=== PATIENT | female | born 1955 | race Caucasian/White ===

== ENCOUNTER 2017-07-19 19:12 | Emergency (ER) | payer OTHER ==
[~2017-07-19] VITALS: Ht 172.7 cm; Wt 82.8 kg
[~2017-07-19 19:12] MED LIST: AMOX875T20 PO; HYDR10TA16 PO; TAB-TAB PO; TEMA15; TEMA30CA PO
[2017-07-19 19:52] VITALS: BP 132/81; PULSE 73; RESP 18; TEMP 98.4; O2SAT 96
[2017-07-19] MEDS ORDERED: CEPH-460 PO (21:35)
[2017-07-19] MEDS ORDERED: TRIMSOL LEFT EYE (21:35)
--- NOTE | 2017-07-19 21:35 | PD ---
HPI Chief Complaint: Eye Problems/Injury Time Seen by Provider: 21:10 Travel History International Travel<30 days: No Contact w/Intl Traveler<30days: No Traveled to known affect area: No History of Present Illness HPI 62-year-old female here with a stye to the left upper lid 5 days. Symptoms are failing to improve with warm compresses. She denies visual disturbances. No ocular pain. Severity is moderate. No aggravating or alleviating factors. PFSH Past Medical History Cancer: Yes (RIGHT BREAST) Cardiovascular Problems: No Chemotherapy: Yes Diabetes: No Diminished Hearing: No Endocrine: No Genitourinary: No Hepatitis: No Hiatal Hernia: No Immune Disorder: No Musculoskeletal: No Neurologic: No Psychiatric: No Reproductive: No Respiratory: No Immunizations Current: Yes Thyroid Disease: No Influenza Vaccination: Yes ?: Not Menopausal: Yes Past Surgical History Abdominal Surgery: No Body Medical Devices: HAD INFUSAPORT, BUT IT HAS BEEN REMOVED Cardiac Surgery: Yes (RT BREAST LUMPECTOMY) Ear Surgery: No Endocrine Surgery: No Eye Surgery: No Genitourinary Surgery: No Gynecologic Surgery: Yes (RIGHT BREAST LUMPECTOMY) Oral Surgery: Yes (FRONT UPPER BRIDGE) Pacemaker: No Thoracic Surgery: No Other Surgery: Yes Social History Alcohol Use: Yes ("OCCASIONAL WINE") Tobacco Use: No Substance Use: No Allergies-Medications (Allergen,Severity, Reaction): Coded Allergies: acetaminophen (Unverified Adverse Reaction, Mild, Nausea/Vomiting, 07/19/17 ) oxycodone (Unverified Adverse Reaction, Mild, Nausea/Vomiting, 07/19/17) Reported Meds & Prescriptions Reported Meds & Active Scripts Active Keflex (Cephalexin) 500 Mg Capsule 500 Mg PO Q6H 7 Days Polymyxin B-Trimethoprim Opth Drops 10,000-0.1 Unit/Ml-% Soln 1 Drop LEFT EYE Q6HR Review of Systems Except as stated in HPI: all other systems reviewed are Neg General / Constitutional: No: Fever Eyes: No: Visual changes HENT: No: Headaches Physical Exam Narrative GENERAL: Alert and well-appearing 62-year-old female SKIN: Warm and dry. HEAD: Normocephalic. EYES: No injection or drainage. + Hordeolum upper lid. + Swelling, erythema, tenderness to the left upper lid. Pupils equal, round, reactive to light. EOMs intact. Cornea clear. Normal visual acuity. NECK: Supple RESPIRATORY: No accessory muscle use. Data Data Last Documented VS Vital Signs Date Time Temp Pulse Resp B/P (MAP) Pulse Ox O2 Delivery O2 Flow Rate FiO2 07/19/17 19:52 98.4 73 18 132/81 (98) 96 MDM Medical Decision Making Medical Screen Exam Complete: Yes Emergency Medical Condition: Yes Differential Diagnosis hordeolum, blepharitis, periorbital cellulitis Narrative Course 62-year-old female here with hordeolum to the left upper lid times one week. No visual acuity changes. No ocular pain. She is allergic to erythromycin ointment. She'll be put on Keflex, polymyxin drops and instructed to do warm compresses Diagnosis Primary Impression: Hordeolum Qualified Codes: H00.014 - Hordeolum externum left upper eyelid Referrals: Primary Care Physician Additional Instructions: Antibiotics as directed. Warm compresses to the area several times per day. Follow-up the primary doctor or psychological assistant if symptoms fail to improve or worsen. Scripts Cephalexin (Keflex) 500 Mg Capsule 500 MG PO Q6H for Infection for 7 Days, #28 CAP 0 Refills Prov: Kath Serrano 07/19/17 Polymyxin B-Trimethoprim Opth Drops (Polymyxin B-Trimethoprim Opth Drops) 10,000 -0.1 Unit/Ml-% Soln 1 DROP LEFT EYE Q6HR for Mgmt Bacterial Infection, #1 BOTTLE 0 Refills Prov: Kath Serrano 07/19/17 Disposition: 01 DISCHARGE HOME Condition: Stable Kath Serarno Jul 19, 2017 21:35
== END 2017-07-19 21:52 | disposition home or self-care (01) ==
LOC: PHEFT 19:12
DX: H00.014 Hordeolum externum left upper eyelid (principal); Z85.3 Personal history of malignant neoplasm of breast; Z88.5 Allergy status to narcotic agent
CPT/HCPCS: 99283